=== PATIENT | male | born 1985 | race Hispanic/Latino ===

== ENCOUNTER 2018-08-07 15:11 | Emergency (ER) | payer OTHER ==
[2018-08-07 15:11] VITALS: BMI 23.7
[2018-08-07 15:34] VITALS: O2SAT 100
--- NOTE | 2018-08-07 15:49 | ED PDOC ---
HPI: Dental Pain/Injury Time Seen by Provider: 08/07/18 15:37 Chief Complaint (Nursing): Weakness/Neurological Deficit Chief Complaint (Provider): Weakness/Neurological Deficit History Per: Patient, Family History/Exam Limitations: intoxication Onset/Duration Of Symptoms: Days (x2) Current Symptoms Are (Timing): Still Present Additional Complaint(s): Patient is a 33 y/o male with no significant PMHx who presents to the ED for evaluation of worsening left cheek swelling for the past two days. Patient has had severe dental caries to left, posterior, upper teeth for a long time. Patient reports he has been drinking whiskey to feel better. Patient's mother reports her son drinks a lot of alcohol. Patient admits to being intoxicated. Patient denies any recent trauma or injury, fever, chills, cough, URI symptoms, and a sore throat. PCP: None Provided Past Medical History Reviewed: Historical Data, Nursing Documentation, Vital Signs Vital Signs: Last Vital Signs Temp 98.4 F 08/07/18 15:32 Pulse 110 H 08/07/18 15:32 Resp 17 08/07/18 15:32 BP 158/99 H 08/07/18 15:32 Pulse Ox 100 08/07/18 15:32 - Medical History PMH: No Chronic Diseases - Surgical History Surgical History: No Surg Hx - Family History Family History: States: Unknown Family Hx - Social History Current smoker - smoking cessation education provided: Yes (Tobacco) Alcohol: > 2 Drinks/Day Drugs: Cannabis - Immunization History Hx Tetanus Toxoid Vaccination: No Hx Influenza Vaccination: No Hx Pneumococcal Vaccination: No - Home Medications Home Medications: Ambulatory Orders Medication Instructions Recorded Clindamycin [Cleocin] 300 mg PO TID #21 cap 08/07/18 Ibuprofen [Motrin Tab] 600 mg PO Q8 PRN #30 tab 08/07/18 - Allergies Allergies/Adverse Reactions: Allergies Allergy/AdvReac Type Severity Reaction Status Date / Time pcn AdvReac SHORTNESS Uncoded 07/28/15 11:49 OF BREATH Review of Systems ROS Statement: Except As Marked, All Systems Reviewed And Found Negative (as per HPI) Constitutional: Negative for: Fever, Chills ENT: Positive for: Other (caries on left, posterior, upper teeth). Negative for: Throat Pain (soreness) Respiratory: Negative for: Cough, Other (URI symptoms) Skin: Positive for: Other (swelling on left cheek) Physical Exam - Reviewed Nursing Documentation Reviewed: Yes Vital Signs Reviewed: Yes - Physical Exam Appears: Positive for: No Acute Distress Head Exam: Positive for: ATRAUMATIC, NORMAL INSPECTION, NORMOCEPHALIC Skin: Positive for: Warm, Dry Eye Exam: Positive for: Conjunctival injection ENT: Positive for: Pharynx Is (clear), Other (tacky mucous membrane; three upper, left molar demonstrate deep caries with debris; complete avulsion of second bicuspid; remaining gingiva has small ulcerations also with debris; non- gingival abscess; tenderness to palpation at teeth; no laxity) Neck: Positive for: Painless ROM, Supple Respiratory: Positive for: Normal Breath Sounds. Negative for: Respiratory Distress Lymphatic: Negative for: Adenopathy Neurologic/Psych: Positive for: Alert, Oriented (x3), Gait (steady), Other (intoxicated, slightly slurred speech). Negative for: Motor/Sensory Deficits Comments: CHEEKS: soft tissue swelling on left cheek; no fluctuance - ECG O2 Sat by Pulse Oximetry: 100 (RA) Pulse Ox Interpretation: Normal Medical Decision Making Medical Decision Making: Time: 1544 Impression: Alcohol Abuse and Severe Dental Caries - Strongly advise dental followup. Detox instructions given. Plan: Motrin Tab 600 mg PO Scribe Attestation: Documented by Ignacio Maravilla, acting as a scribe for Mercy Valle MD. Provider Scribe Attestation: All medical record entries made by the Scribe were at my direction and personally dictated by me. I have reviewed the chart and agree that the record accurately reflects my personal performance of the history, physical exam, medical decision making, and the department course for this patient. I have also personally directed, reviewed, and agree with the discharge instructions and disposition. Disposition - Clinical Impression Clinical Impression: Tooth caries, Alcohol intoxication Counseled Patient/Family Regarding: Studies Performed, Diagnosis, Need For Followup, Rx Given - Disposition Disposition: Routine/Home Disposition Time: 15:49 Condition: STABLE Additional Instructions: FOLLOW UP AT THE DENTIST SOON POSSIBLE Dental Clinic: [phone] [address] Prescriptions: Clindamycin [Cleocin] 300 mg PO TID #21 cap Ibuprofen [Motrin Tab] 600 mg PO Q8 PRN #30 tab PRN Reason: Pain, Moderate (4-7) Instructions: Alcohol Use - When Is Drinking a Problem?, Tooth Decay, Adult (DC), Dental Pain (DC)
[2018-08-07 17:02] VITALS: BP 132/74; PULSE 90; RESP 18; TEMP 98.6
== END 2018-08-07 16:40 | disposition home or self-care (01) ==
LOC: H.ER 15:11
DX: F10.129 Alcohol abuse with intoxication, unspecified (principal); K02.9 Dental caries, unspecified

== ENCOUNTER 2018-10-19 18:15 | Emergency (ER) | payer SELFPAY ==
[2018-10-19 18:15] VITALS: BMI 23.7
[2018-10-19 18:23] VITALS: RESP 18
[2018-10-19] MEDS ORDERED: Sodium Chloride 0.9% 1,000 ML IV STA (18:38)
[2018-10-19] MEDS ORDERED: Iohexol 240 (50 ml) PO ONE (18:40)
[2018-10-19] MEDS ORDERED: Iohexol 240 (50 ml) ONE (18:49)
--- NOTE | 2018-10-19 18:49 | ED PDOC ---
HPI: Abdomen Time Seen by Provider: 10/19/18 18:30 Chief Complaint (Nursing): Abdominal Pain Chief Complaint (Provider): Abd Pain History Per: Patient History/Exam Limitations: no limitations Onset/Duration Of Symptoms: Days Outside of [place] travel?: No Current Symptoms Are (Timing): Still Present Pain Scale Rating Of: 5 Location Of Pain/Discomfort: LUQ, LLQ Quality Of Discomfort: Sharp Associated Symptoms: Diarrhea (non-bloody). denies: Fever, Chills, Nausea, Vomiting Exacerbating Factors: None Alleviating Factors: None Additional History Per: Patient Additional Complaint(s): 33 y/o male with significant medical hx presents to the ED c/o left lower quad pain and diarrhea for one week. Pt denies nausea and vomiting when he is not drinking alcohol. Pt reports he came in because mother suggested to ED. Pt denies urinary complaints and fever. Pt admits to drinking alcohol today about 3 hrs ago. Past Medical History Vital Signs: Last Vital Signs Temp 98.2 F 10/19/18 18:21 Pulse 102 H 10/19/18 18:21 Resp 18 10/19/18 18:21 BP 144/91 H 10/19/18 18:21 Pulse Ox 99 10/19/18 18:21 - Medical History PMH: No Chronic Diseases - Surgical History Surgical History: No Surg Hx - Family History Family History: States: Unknown Family Hx - Social History Drugs: Denies - Immunization History Hx Tetanus Toxoid Vaccination: No Hx Influenza Vaccination: No Hx Pneumococcal Vaccination: No - Home Medications Home Medications: Ambulatory Orders Medication Instructions Recorded Clindamycin [Cleocin] 300 mg PO TID #21 cap 08/07/18 Ibuprofen [Motrin Tab] 600 mg PO Q8 PRN #30 tab 08/07/18 - Allergies Allergies/Adverse Reactions: Allergies Allergy/AdvReac Type Severity Reaction Status Date / Time amoxicillin Allergy RASH Verified 10/19/18 18:25 pcn AdvReac SHORTNESS Uncoded 07/28/15 11:49 OF BREATH Review of Systems ROS Statement: Except As Marked, All Systems Reviewed And Found Negative Constitutional: Negative for: Fever, Chills, Sweats, Weakness, Malaise, Weight loss Cardiovascular: Negative for: Chest Pain, Palpitations Respiratory: Negative for: Cough, Shortness of Breath, SOB with Exertion Gastrointestinal: Positive for: Abdominal Pain, Diarrhea. Negative for: Nausea, Vomiting Genitourinary Male: Negative for: Dysuria Physical Exam - Reviewed Nursing Documentation Reviewed: Yes Vital Signs Reviewed: Yes - Physical Exam Appears: Positive for: Well, Non-toxic, No Acute Distress Head Exam: Positive for: ATRAUMATIC, NORMAL INSPECTION, NORMOCEPHALIC Skin: Positive for: Normal Color, Warm, DRY Eye Exam: Positive for: Normal appearance, PERRL ENT: Positive for: Normal ENT Inspection Neck: Positive for: Normal, Painless ROM Cardiovascular/Chest: Positive for: Regular Rate, Rhythm Respiratory: Positive for: CNT, Normal Breath Sounds Gastrointestinal/Abdominal: Positive for: Normal Exam, Bowel Sounds (normoactive ), Soft, Tenderness (LUQ, LLQ ). Negative for: Mass, Distended, Guarding Back: Positive for: Normal Inspection. Negative for: L CVA Tenderness, R CVA Tenderness Extremity: Positive for: Normal ROM Neurological/Psych: Positive for: Awake, Alert, Normal Tone, Oriented - Laboratory Results Result Diagrams: 10/19/18 18:50 10/19/18 18:50 - ECG O2 Sat by Pulse Oximetry: 99 - Progress ED Course And Treament: CBC CMP ALCOHOL LEVEL LIPASE UA CT ABD/PELVIS 0.9NS TORADOL 30MG IV 20:00 Pt handed off to Anuel Martins Pa-c, follow up on Ct scan abd/pelvis. Disposition - Clinical Impression Clinical Impression: Abdominal pain - Disposition Disposition Time: 20:00 Condition: STABLE Forms: [employer] (Belarusian) Patient Signed Over To: Anuel Martins Handoff Comments: ct scan abd/pelvis
[2018-10-19 19:13] LABS: SQUAMOUS EPITHIAL < 1 /hpf (0-5); URINE BILIRUBIN NEGATIVE (NEGATIVE); URINE BLOOD NEGATIVE (NEGATIVE); URINE CLARITY CLEAR (Clear); URINE COLOR YELLOW (YELLOW); URINE GLUCOSE (UA) NEG (NEGATIVE); URINE LEUKOCYTE ESTERASE NEG Leu/uL (Negative); URINE PROTEIN NEGATIVE (NEGATIVE); URINE UROBILINOGEN 0.2-1.0 mg/dL (0.2-1.0)
[2018-10-19 19:17] LABS: ALB/GLOB RATIO 1.3 (1.0-2.1); ALBUMIN 4.6 g/dL (3.5-5.0); ALT/SGPT 55 U/L (21-72); AST/SGOT 78 U/L (17-59); BLOOD UREA NITROGEN 14 mg/dl (9-20); CALCIUM 9.3 mg/dL (8.4-10.2); GFR NON-AFRICAN AMERICAN > 60; LIPASE 384 U/L (23-300)
[2018-10-19 19:27] LABS: BASO # 0.2 K/uL (0.0-0.2); EOS # 0.1 K/uL (0.0-0.7); EOS % 1.9 % (0.0-4.0); HEMOGLOBIN 14.5 g/dL (12.0-18.0); LYMPH # 1.8 K/uL (1.0-4.3); LYMPH % 35.2 % (20.0-40.0); MEAN CELL VOLUME 93.2 fl (80.0-94.0); MEAN PLATELET VOLUME 8.5 fl (7.2-11.7); MONO # 0.5 K/uL (0.0-0.8); MONO % 10.6 % (0.0-10.0); NEUT # 2.5 K/uL (1.8-7.0); PLATELET COUNT 224 K/uL (130-400); RBC 4.56 Mil/uL (4.40-5.90); RED CELL DISTRIBUTION WIDTH 13.8 % (11.5-14.5); WHITE BLOOD COUNT 5.2 K/uL (4.8-10.8)
[2018-10-19 19:28] LABS: BASO % 3.3 % (0.0-2.0); MEAN CORPUSCULAR HEMOGLOBIN 31.7 pg (27.0-31.0); NRBC % 0.2 % (0.0-0.0)
[2018-10-19 19:59] LABS: BANDS 1 % (0-2); BASOPHIL 2 % (0-2); EOSINOPHIL 1 % (0-7); LYMPHOCYTE 27 % (20-50); MONOCYTE 11 % (0-10); NEUTROPHIL 57 % (42-75); PLATELET ESTIMATE NORMAL (NORMAL); REACTIVE LYMPHOCYTES 1 % (0-0); TOTAL CELLS COUNTED 100
[2018-10-19] MEDS ORDERED: Iohexol 300 100 ML IJ ONE (20:29)
[2018-10-19] MEDS ORDERED: Sodium Chloride 0.9% 100 ML IV ONE (20:29)
--- NOTE | 2018-10-19 20:46 | ED PDOC ---
- Laboratory Results Result Diagrams: 10/19/18 18:50 10/19/18 18:50 Lab Results: Total Bilirubin 0.3 mg/dl (0.2-1.3) 10/19/18 18:50 AST 78 U/L (17-59) H 10/19/18 18:50 ALT 55 U/L (21-72) 10/19/18 18:50 Alkaline Phosphatase 66 U/L (38-126) 10/19/18 18:50 Total Protein 8.3 G/DL (6.3-8.2) H 10/19/18 18:50 Albumin 4.6 g/dL (3.5-5.0) 10/19/18 18:50 Globulin 3.7 gm/dL (2.2-3.9) 10/19/18 18:50 Albumin/Globulin Ratio 1.3 (1.0-2.1) 10/19/18 18:50 Lipase 384 U/L (23-300) H 10/19/18 18:50 Urine Color Yellow (YELLOW) 10/19/18 18:50 Urine Clarity Clear (Clear) 10/19/18 18:50 Urine pH 7.0 (5.0-8.0) 10/19/18 18:50 Ur Specific [place] 1.010 (1.003-1.030) 10/19/18 18:50 Urine Protein Negative mg/dL (NEGATIVE) 10/19/18 18:50 Urine Glucose (UA) Neg mg/dL (NEGATIVE) 10/19/18 18:50 Urine Ketones Negative mg/dL (NEGATIVE) 10/19/18 18:50 Urine Blood Negative (NEGATIVE) 10/19/18 18:50 Urine Nitrate Negative (NEGATIVE) 10/19/18 18:50 Urine Bilirubin Negative (NEGATIVE) 10/19/18 18:50 Urine Urobilinogen 0.2-1.0 mg/dL (0.2-1.0) 10/19/18 18:50 Ur Leukocyte Esterase Neg Eddie/uL (Negative) 10/19/18 18:50 Urine RBC (Auto) < 1 /hpf (0-3) 10/19/18 18:50 Ur Squamous Epith Cells < 1 /hpf (0-5) 10/19/18 18:50 - ECG O2 Sat by Pulse Oximetry: 99 - Progress ED Course And Treament: 1999 Signed out to me pending CT results. [address] 2150 On my initial evaluation, pt. reports localized LLQ abd pain x 1 week with multiple episodes of non-bloody watery diarrhea. Admits to drinking daily. Further states abdominal pain has completely resolved. Minimal LLQ tenderness. No diarrhea while in ED. No slurred speech, gait is steady and unassisted. Informed of results and of hepatomegaly and dangers of drinking alcohol. Advised to f/u with [facility] for further evaluation but is to return to ED immediately if symptoms worsen. Medical Decision Making Medical Decision Makin:25 CT Abdomen Pelvis FINDINGS: LUNG BASES: The lung bases appear clear. No pleural effusions are seen. LIVER: There is hepatomegaly. The liver measured 17.7 cm in the midclavicular line. GALLBLADDER AND BILE DUCTS: The gallbladder appears within normal limits. No radioopaque gallstones are seen. No biliary ductal dilatation is evident. PANCREAS: Unremarkable. SPLEEN: Unremarkable. ADRENAL GLANDS: Unremarkable. KIDNEYS, URETERS, AND BLADDER: The kidneys appear within normal limits. There is no hydronephrosis or hydrou reter. No urinary calculi are seen. The urinary bladder appeared normal in size and configuration. STOMACH AND BOWEL: Unremarkable appearance of the stomach and bowel. No evidence of bowel obstruct ion. No evidence suggesting enteritis or colitis. APPENDIX: No evidence of acute appendicitis on CT examination. PERITONEUM: No free fluid. No free air. LYMPH NODES: No lymphadenopathy is evident. REPRODUCTIVE: Unremarkable as visualized. VASCULATURE: No evidence of abdominal aortic aneurysm. BONES: No aggressive appearing osseous lesion. No acute osseous pathology evident. IMPRESSION: 1. No acute intra-abdominal or pelvic abnormality. 2. Hepatomegaly. Disposition - Clinical Impression Clinical Impression: Enteritis, Alcohol intoxication - POA Present On Arrival: None - Disposition Referrals: [facility] [Outside] [facility] [Outside] Disposition: Routine/Home Disposition Time: 21:57 Condition: IMPROVED Additional Instructions: FOLLOW UP WITH [facility] FOR FURTHER EVALUATION RETURN TO ED IMMEDIATELY IF SYMPTOMS WORSEN RACHEAL CHA, thank you for letting us take care of you today. Your provider was Mercy Valle MD and you were treated for LT ABD PAIN. The emergency medical care you received today was directed at your acute symptoms. If you were prescribed any medication, please fill it and take as directed. It may take several days for your symptoms to resolve. Return to the Emergency Department if your symptoms worsen, do not improve, or if you have any other problems. Please contact your doctor or call one of the physicians/clinics you have been referred to that are listed on the Patient Visit Information form that is included in your discharge packet. Bring any paperwork you were given at discharge with you along with any medications you are taking to your follow up visit. Our treatment cannot replace ongoing medical care by a primary care provider outside of the emergency department. Thank you for allowing the [facility] team to be part of your care today. If you had an X-Ray or CT scan: A Radiologist will review the ED reading if any change in treatment is needed we will contact you. If you had a blood, urine, or wound culture: It will take several days for the results, if any change in treatment is needed we will contact you. If you had an STI test: It will take 48 hours for the results. Please call after 1 week if you have not heard back. Prescriptions: Dicyclomine [Bentyl] 20 mg PO TID PRN #10 tab PRN Reason: abdominal pain Instructions: Alcohol Use - When Is Drinking a Problem?, Alcohol Abuse and Alcoholism (DC), Diarrhea in Adolescents and Adults Forms: [employer] (Sammarinese)
[2018-10-19 22:29] VITALS: BP 138/77; PULSE 77; TEMP 98.1; O2SAT 100
--- NOTE | 2018-10-20 12:06 | CT ---
Date of service: 10/19/2018 PROCEDURE: CT Abdomen and Pelvis with contrast HISTORY: abd pain COMPARISON: None. TECHNIQUE: Following oral and intravenous contrast administration, a CT examination of the abdomen and pelvis was performed from the domes of the diaphragms to the symphysis pubis with reformatted datasets provided not only axial but also sagittal and coronal series. Contrast dose: Omnipaque 300, 99 cc Radiation dose: Total exam DLP = 595.34 mGy-cm. This CT exam was performed using one or more of the following dose reduction techniques: Automated exposure control, adjustment of the mA and/or kV according to patient size, and/or use of iterative reconstruction technique. FINDINGS: LOWER THORAX: Limited linear atelectasis or fibrosis in the bilateral dependent bases. LIVER: Diminished attenuation is mild throughout the liver suggesting mild hepatic steatosis. No mass or intrahepatic biliary dilatation is demonstrated throughout. Borderline hepatomegaly. GALLBLADDER AND BILE DUCTS: Unremarkable. PANCREAS: Unremarkable. No gross lesion or ductal dilatation. SPLEEN: Unremarkable. ADRENALS: Unremarkable. No mass. KIDNEYS AND URETERS: Unremarkable. No hydronephrosis. No solid mass. VASCULATURE: Unremarkable. No aortic aneurysm. No aortic atherosclerotic calcification or mural plaque present. BOWEL: The stomach is distended with retained oral contrast material and food and otherwise appears grossly unremarkable. There is no bowel obstruction appreciated. No suspicious mural thickening or local bowel reactive change to suggest segmental colitis or enteritis. Shotty central mesenteric lymph nodes identified without cecal lymphadenopathy or shotty lymph nodes. No gross bowel mass appreciable at this time. Moderate retained fecal material seen throughout the majority colon. APPENDIX: Normal appendix. PERITONEUM: Unremarkable. No free fluid. No free air. LYMPH NODES: Unremarkable. No enlarged lymph nodes. BLADDER: Mildly distended but otherwise unremarkable urinary bladder is identified. Thin wall throughout. REPRODUCTIVE: Unremarkable. BONES: No acute fracture. OTHER FINDINGS: None. IMPRESSION: 1. No definitive acute abdominal pelvic findings as discussed above. 2. Mild hepatic steatosis. Borderline hepatomegaly. 3. Stomach is distended with retained food. Urinary bladder is distended but thin walled and otherwise unremarkable. Preliminary report provided by Marian, 10/19/2018 9:25 p.m..
== END 2018-10-19 22:30 | disposition home or self-care (01) ==
LOC: H.ER 18:15
DX: R10.9 Unspecified abdominal pain (principal); F10.129 Alcohol abuse with intoxication, unspecified; K52.9 Noninfective gastroenteritis and colitis, unspecified; K76.0 Fatty (change of) liver, not elsewhere classified
CPT/HCPCS: 74177; 80053; 81003; 83690; 85025; 96361; 96374; 99284; G0480; J1885; J7030; Q9966; Q9967